=== PATIENT | male | born 1935 | race Caucasian/White ===

== ENCOUNTER 2021-04-02 17:18 | Inpatient (IN) | payer OTHER, SELFPAY ==
[~2021-04-02] VITALS: Ht 152.4 cm; Wt 59.4 kg
[2021-04-02 17:24] VITALS: BP_SYST 132
[2021-04-02 19:30] LABS: ANION GAP 12 (5-15); CHLORIDE 101 mmol/L (98-107); CREATININE 3.32 mg/dL (0.55-1.30); GLUCOSE 217 mg/dL (70-99); POTASSIUM 3.9 mmol/L (3.5-5.1); SODIUM SERUM 136 mmol/L (136-145); UREA NITROGEN, BLOOD 72 mg/dL (8-21)
[2021-04-02 19:35] LABS: BASOPHILS % (AUTO) 0.2 % (0.0-2.0); EOSINOPHILS # (AUTO) 0.1 K/uL (0.0-0.4); EOSINOPHILS % (AUTO) 0.9 % (0.0-4.0); HEMATOCRIT 31.9 % (36-54); HEMOGLOBIN 10.9 g/dL (14.0-18.0); LYMPHOCYTES # (AUTO) 1.4 K/uL (1.0-5.5); LYMPHOCYTES % (AUTO) 11.8 % (20.5-51.5); MEAN CORPUSCULAR HEMOGLOBIN 29 pg (27-31); MEAN CORPUSCULAR HGB CONC 34 % (32-36); MEAN CORPUSCULAR VOLUME 86 fL (79.0-98.0); MONOCYTES % (AUTO) 8.9 % (1.7-9.3); NEUTROPHILS # (AUTO) 9.1 K/uL (1.8-7.7); NEUTROPHILS % (AUTO) 78.2 % (40.0-70.0); PLATELET COUNT (AUTO) 209 K/uL (130-430); RED BLOOD CELL COUNT(AUTO) 3.72 MIL/uL (4.2-6.2); RED CELL DISTRIBUTION WIDTH 13.9 % (9.0-15.0); WHITE BLOOD COUNT (AUTO) 11.6 K/uL (4.8-10.8)
[2021-04-02 19:36] LABS: ALANINE AMINOTRANSFERASE 17 U/L (12-78); ALBUMIN 3.4 g/dL (3.4-4.8); ASPARTATE AMINOTRANSFERASE 14 U/L (10-37); TOTAL BILIRUBIN 0.5 mg/dL (0.0-1.0)
[2021-04-02 19:52] LABS: PROTHROMBIN TIME 10.1 SECS (9.5-12.5)
[2021-04-02] MEDS ORDERED: cefTRIAXone 1 GM VIAL IM ONE (21:45)
[2021-04-02] MEDS ORDERED: AZITHROMYCIN 500 MG in NS 250 ML IV ONE (21:45)
[2021-04-02] MEDS ORDERED: NACL 0.9% 1,000 ML IV ONE (21:45)
[2021-04-02] MEDS ORDERED: AZITHROMYCIN 500 MG/VIAL (ZITHROMAX) IV ONE (21:52)
[2021-04-02 23:37] VITALS: BP_SYST 126
[2021-04-03] VITALS: BP_SYST 126
[2021-04-03] MEDS ORDERED: ACETAMINOPHEN 325 MG TABLET PO PRN (00:15)
[2021-04-03] MEDS ORDERED: NALOXONE HCL 0.4 MG/ML AMP (NARCAN) IVP PRN (00:15)
[2021-04-03] MEDS ORDERED: LYR50 PO (00:16)
[2021-04-03] MEDS ORDERED: PRAV40TA63 PO (00:16)
[2021-04-03] MEDS ORDERED: FURO-149 PO (00:16)
[2021-04-03] MEDS ORDERED: ASA81 PO (00:16)
[2021-04-03] MEDS ORDERED: CARV3.1246 PO (00:16)
[2021-04-03] MEDS ORDERED: LISI-209 PO (00:16)
[2021-04-03] MEDS ORDERED: METF750T46 PO (00:16)
[2021-04-03 00:42] VITALS: BP_SYST 126
[2021-04-03 06:36] LABS: BASOPHILS % (AUTO) 0.4 % (0.0-2.0); EOSINOPHILS # (AUTO) 0.1 K/uL (0.0-0.4); EOSINOPHILS % (AUTO) 0.8 % (0.0-4.0); HEMATOCRIT 27.3 % (36-54); HEMOGLOBIN 9.6 g/dL (14.0-18.0); LYMPHOCYTES # (AUTO) 1.6 K/uL (1.0-5.5); LYMPHOCYTES % (AUTO) 17.7 % (20.5-51.5); MEAN CORPUSCULAR HEMOGLOBIN 30 pg (27-31); MEAN CORPUSCULAR HGB CONC 35 % (32-36); MEAN CORPUSCULAR VOLUME 85 fL (79.0-98.0); MONOCYTES # (AUTO) 0.8 K/uL (0.0-1.0); MONOCYTES % (AUTO) 8.8 % (1.7-9.3); NEUTROPHILS # (AUTO) 6.7 K/uL (1.8-7.7); NEUTROPHILS % (AUTO) 72.3 % (40.0-70.0); PLATELET COUNT (AUTO) 189 K/uL (130-430); RED CELL DISTRIBUTION WIDTH 13.8 % (9.0-15.0); WHITE BLOOD COUNT (AUTO) 9.2 K/uL (4.8-10.8)
[2021-04-03 06:58] LABS: ALANINE AMINOTRANSFERASE 15 U/L (12-78); ALBUMIN 2.8 g/dL (3.4-4.8); ANION GAP 13 (5-15); ASPARTATE AMINOTRANSFERASE 25 U/L (10-37); CALCIUM 8.3 mg/dL (8.4-11.0); CHLORIDE 106 mmol/L (98-107); CREATININE 3.01 mg/dL (0.55-1.30); GLUCOSE 189 mg/dL (70-99); POTASSIUM 3.9 mmol/L (3.5-5.1); SODIUM SERUM 140 mmol/L (136-145); TOTAL BILIRUBIN 0.4 mg/dL (0.0-1.0); UREA NITROGEN, BLOOD 72 mg/dL (8-21)
[2021-04-03 07:56] VITALS: BP_SYST 107
[2021-04-03] MEDS ORDERED: HEPARIN 25,000 UNITS/D5W 250ML 250 ML IV PRN (11:00)
[2021-04-03] MEDS ORDERED: DEXTROSE 50% JECT 50 ML DISP.SYRIN IVP PRN (11:00)
[2021-04-03] MEDS ORDERED: HEPARIN SODIUM,PORCINE 2000 UNITS/0.4 ML BOLUS IVP PRN (12:00)
[2021-04-03] MEDS ORDERED: HEPARIN SODIUM,PORCINE 5,000 UNITS/ML VIAL IVP ONE (12:00)
[2021-04-03] MEDS ORDERED: HEPARIN SODIUM,PORCINE 3000 UNITS/0.6 ML BOLUS IVP PRN (12:00)
[2021-04-03] MEDS: INSULIN REGULAR, HUMAN 100 UNITS/ML, 10 ML VIAL (humuLIN R) SUBCUT PRN ×3 (12:01→23:19)
[2021-04-03] MEDS: NACL 0.9% 1,000 ML IV SCH ×2 (12:11→21:35)
[2021-04-03 12:20] VITALS: BP_SYST 108
[2021-04-03] MEDS: HEPARIN 25,000 UNITS in 250 ML PREMIX IV PRN ×2 (13:23→13:57)
[2021-04-03 16:45] VITALS: BP_SYST 110
[2021-04-03 20:00] VITALS: BP_SYST 124
[2021-04-03] MEDS: cefTRIAXone 1 GM IVPB PREMIX 50 ML IV SCH (20:00)
[2021-04-03] MEDS ORDERED: AZITHROMYCIN 500 MG in NS 250 ML IV SCH (21:00)
[2021-04-04 00:17] VITALS: BP_SYST 104
[2021-04-04 08:00] VITALS: BP_SYST 128
[2021-04-04 11:29] LABS: BASOPHILS # (AUTO) 0.1 K/uL (0.0-0.2); BASOPHILS % (AUTO) 0.8 % (0.0-2.0); EOSINOPHILS # (AUTO) 0.5 K/uL (0.0-0.4); EOSINOPHILS % (AUTO) 4.9 % (0.0-4.0); HEMATOCRIT 26.1 % (36-54); LYMPHOCYTES % (AUTO) 20.9 % (20.5-51.5); MEAN CORPUSCULAR HEMOGLOBIN 30 pg (27-31); MEAN CORPUSCULAR HGB CONC 34 % (32-36); MEAN CORPUSCULAR VOLUME 88 fL (79.0-98.0); MONOCYTES # (AUTO) 0.9 K/uL (0.0-1.0); MONOCYTES % (AUTO) 9.6 % (1.7-9.3); NEUTROPHILS % (AUTO) 63.8 % (40.0-70.0); PLATELET COUNT (AUTO) 185 K/uL (130-430); RED BLOOD CELL COUNT(AUTO) 2.98 MIL/uL (4.2-6.2); RED CELL DISTRIBUTION WIDTH 14.1 % (9.0-15.0); WHITE BLOOD COUNT (AUTO) 9.4 K/uL (4.8-10.8)
[2021-04-04 11:32] LABS: ANION GAP 12 (5-15); CALCIUM 7.6 mg/dL (8.4-11.0); CHLORIDE 110 mmol/L (98-107); CREATININE 2.57 mg/dL (0.55-1.30); GLUCOSE 117 mg/dL (70-99); POTASSIUM 3.8 mmol/L (3.5-5.1); SODIUM SERUM 142 mmol/L (136-145); UREA NITROGEN, BLOOD 72 mg/dL (8-21)
[2021-04-04 12:05] VITALS: BP_SYST 118
[2021-04-04] MEDS: HYDROcodone/ACETAMIN 5-325 MG TAB (NORCO/ VICODIN) PO PRN (12:32)
[2021-04-04] MEDS: INSULIN REGULAR, HUMAN 100 UNITS/ML, 10 ML VIAL (humuLIN R) SUBCUT PRN ×3 (12:35→23:22)
[2021-04-04] MEDS: NACL 0.9% 1,000 ML IV SCH ×2 (12:38→23:16)
[2021-04-04 15:25] VITALS: BP_SYST 125
[2021-04-04 20:00] VITALS: BP_SYST 136
[2021-04-04] MEDS: cefTRIAXone 1 GM IVPB PREMIX 50 ML IV SCH (21:05)
[2021-04-04] MEDS: metroNIDAZOLE 500 mg/NS 100 ML IV SCH (21:52)
[2021-04-05 00:06] VITALS: BP_SYST 129
[2021-04-05] MEDS: HYDROcodone/ACETAMIN 5-325 MG TAB (NORCO/ VICODIN) PO PRN ×3 (02:43→22:40)
[2021-04-05] MEDS: NACL 0.9% 1,000 ML IV SCH ×2 (03:00→17:03)
[2021-04-05 08:00] VITALS: BP_SYST 149
[2021-04-05] MEDS: metroNIDAZOLE 500 mg/NS 100 ML IV SCH ×2 (09:05→22:41)
[2021-04-05] MEDS: INSULIN REGULAR, HUMAN 100 UNITS/ML, 10 ML VIAL (humuLIN R) SUBCUT PRN ×2 (11:44→17:32)
[2021-04-05 12:00] VITALS: BP_SYST 144
[2021-04-05] MEDS: ALBUTEROL SULFATE 0.083% 2.5 MG/3 ML VIAL.NEB INH PRN (12:24)
[2021-04-05 16:00] VITALS: BP_SYST 141
[2021-04-05 20:00] VITALS: BP_SYST 161
[2021-04-05] MEDS: cefTRIAXone 1 GM IVPB PREMIX 50 ML IV SCH (22:44)
[2021-04-06] MEDS: INSULIN REGULAR, HUMAN 100 UNITS/ML, 10 ML VIAL (humuLIN R) SUBCUT PRN ×3 (00:18→23:37)
[2021-04-06] MEDS: NACL 0.9% 1,000 ML IV SCH ×3 (00:28→21:29)
[2021-04-06 04:39] VITALS: BP_SYST 152
[2021-04-06 08:09] VITALS: BP_SYST 168
[2021-04-06] MEDS: metroNIDAZOLE 500 mg/NS 100 ML IV SCH ×2 (08:50→21:29)
[2021-04-06] MEDS ORDERED: cloNIDine HCL 0.1 MG TABLET PO ONE (09:45)
[2021-04-06 12:48] VITALS: BP_SYST 137
[2021-04-06] MEDS: HYDROcodone/ACETAMIN 5-325 MG TAB (NORCO/ VICODIN) PO PRN ×2 (14:20→23:48)
[2021-04-06 15:53] VITALS: BP_SYST 137
[2021-04-06 16:00] VITALS: BP_SYST 116
[2021-04-06 20:00] VITALS: BP_SYST 147
[2021-04-06] MEDS: cefTRIAXone 1 GM IVPB PREMIX 50 ML IV SCH (21:29)
[2021-04-07] MEDS: ALBUTEROL SULFATE 0.083% 2.5 MG/3 ML VIAL.NEB INH PRN ×3 (00:59→23:58)
[2021-04-07 01:00] VITALS: BP_SYST 154
[2021-04-07] MEDS: NACL 0.9% 1,000 ML IV SCH ×2 (05:31→16:10)
[2021-04-07 07:43] VITALS: BP_SYST 147
[2021-04-07] MEDS: DOCUSATE SODIUM 250 MG CAPSULE PO SCH ×2 (09:18→20:59)
[2021-04-07] MEDS: FUROSEMIDE 40 MG TABLET PO SCH (09:19)
[2021-04-07] MEDS: lisinopriL 5 MG TABLET PO SCH (09:19)
[2021-04-07] MEDS: ASPIRIN 81 MG TAB.CHEW PO SCH (09:21)
[2021-04-07] MEDS: CARVEDILOL 3.125 MG TABLET (COREG) PO SCH (09:21)
[2021-04-07] MEDS: PREGABALIN 25 MG CAPSULE (LYRICA) PO SCH (09:22)
[2021-04-07] MEDS: BENZONATATE 100 MG CAPSULE (TESSALON) PO SCH ×3 (09:22→21:03)
[2021-04-07] MEDS: metroNIDAZOLE 500 mg/NS 100 ML IV SCH ×2 (11:18→21:01)
[2021-04-07] MEDS: INSULIN REGULAR, HUMAN 100 UNITS/ML, 10 ML VIAL (humuLIN R) SUBCUT PRN ×3 (11:36→23:45)
[2021-04-07 12:02] VITALS: BP_SYST 125
[2021-04-07 16:00] VITALS: BP_SYST 140
[2021-04-07 20:00] VITALS: BP_SYST 139
[2021-04-07] MEDS: cefTRIAXone 1 GM IVPB PREMIX 50 ML IV SCH (21:01)
[2021-04-07] MEDS: D5NS 1,000 ML IV SCH (21:19)
[2021-04-08] VITALS: BP_SYST 151
[2021-04-08] MEDS: INSULIN REGULAR, HUMAN 100 UNITS/ML, 10 ML VIAL (humuLIN R) SUBCUT PRN ×3 (05:44→17:20)
[2021-04-08 08:13] LABS: BASOPHILS % (AUTO) 0.4 % (0.0-2.0); EOSINOPHILS # (AUTO) 0.6 K/uL (0.0-0.4); EOSINOPHILS % (AUTO) 5.3 % (0.0-4.0); HEMATOCRIT 24.4 % (36-54); HEMOGLOBIN 8.4 g/dL (14.0-18.0); LYMPHOCYTES # (AUTO) 1.2 K/uL (1.0-5.5); LYMPHOCYTES % (AUTO) 11.8 % (20.5-51.5); MEAN CORPUSCULAR HEMOGLOBIN 30 pg (27-31); MEAN CORPUSCULAR HGB CONC 35 % (32-36); MEAN CORPUSCULAR VOLUME 86 fL (79.0-98.0); MONOCYTES # (AUTO) 0.9 K/uL (0.0-1.0); MONOCYTES % (AUTO) 8.4 % (1.7-9.3); NEUTROPHILS # (AUTO) 7.8 K/uL (1.8-7.7); NEUTROPHILS % (AUTO) 74.1 % (40.0-70.0); PLATELET COUNT (AUTO) 197 K/uL (130-430); RED BLOOD CELL COUNT(AUTO) 2.82 MIL/uL (4.2-6.2); RED CELL DISTRIBUTION WIDTH 13.6 % (9.0-15.0); WHITE BLOOD COUNT (AUTO) 10.6 K/uL (4.8-10.8)
[2021-04-08 09:09] LABS: ALANINE AMINOTRANSFERASE 30 U/L (12-78); ALBUMIN 2.3 g/dL (3.4-4.8); ANION GAP 10 (5-15); ASPARTATE AMINOTRANSFERASE 32 U/L (10-37); CALCIUM 8.2 mg/dL (8.4-11.0); CHLORIDE 109 mmol/L (98-107); CREATININE 1.39 mg/dL (0.55-1.30); GLUCOSE 173 mg/dL (70-99); POTASSIUM 3.6 mmol/L (3.5-5.1); SODIUM SERUM 140 mmol/L (136-145); TOTAL BILIRUBIN 0.2 mg/dL (0.0-1.0); UREA NITROGEN, BLOOD 22 mg/dL (8-21)
[2021-04-08] MEDS: PREGABALIN 25 MG CAPSULE (LYRICA) PO SCH (10:29)
[2021-04-08] MEDS: DOCUSATE SODIUM 250 MG CAPSULE PO SCH ×2 (10:29→20:03)
[2021-04-08] MEDS: FUROSEMIDE 40 MG TABLET PO SCH (10:30)
[2021-04-08] MEDS: CARVEDILOL 3.125 MG TABLET (COREG) PO SCH (10:30)
[2021-04-08] MEDS: ASPIRIN 81 MG TAB.CHEW PO SCH (10:31)
[2021-04-08] MEDS: lisinopriL 5 MG TABLET PO SCH (10:31)
[2021-04-08] MEDS: D5NS 1,000 ML IV SCH ×2 (10:33→23:55)
[2021-04-08] MEDS: metroNIDAZOLE 500 mg/NS 100 ML IV SCH ×2 (10:33→20:03)
[2021-04-08] MEDS: BENZONATATE 100 MG CAPSULE (TESSALON) PO SCH ×3 (10:35→20:03)
[2021-04-08 11:36] LABS: BILIRUBIN,URINE NEGATIVE (NEGATIVE); CLARITY/URINE CLEAR (CLEAR); COLOR,URINE YELLOW (YELLOW); GLUCOSE,URINE TRACE (NEGATIVE); KETONES,URINE NEGATIVE (NEGATIVE); LEUKOCYTE ESTERASE ,URINE NEGATIVE (NEGATIVE); NITRITE, URINE NEGATIVE (NEGATIVE); PROTEIN URINE 1+ (NEGATIVE); UROBILINOGEN,URINE 0.2 (0.2-1.0)
[2021-04-08 12:10] LABS: BLOOD, URINE TRACE (NEGATIVE)
[2021-04-08 12:15] LABS: BACTERIA,URINE None Seen /HPF (None Seen); RBC,URINE 0-3 /HPF (0-3); WBC,URINE NONE SEEN /HPF (0-3)
[2021-04-08 12:33] VITALS: BP_SYST 158
[2021-04-08 17:46] VITALS: BP_SYST 150
[2021-04-08 20:00] VITALS: BP_SYST 143
[2021-04-08] MEDS: cefTRIAXone 1 GM IVPB PREMIX 50 ML IV SCH (20:03)
[2021-04-09] MEDS: INSULIN REGULAR, HUMAN 100 UNITS/ML, 10 ML VIAL (humuLIN R) SUBCUT PRN ×2 (00:10→13:07)
[2021-04-09] MEDS: ALBUTEROL SULFATE 0.083% 2.5 MG/3 ML VIAL.NEB INH PRN (00:20)
[2021-04-09 00:32] VITALS: BP_SYST 117
[2021-04-09] MEDS ORDERED: POLYETHYLENE GLYCOL 3350, 17 GM/ POWD.PACK PO PRN (07:00)
[2021-04-09 08:00] VITALS: BP_SYST 163
[2021-04-09 08:39] VITALS: BP_SYST 117
[2021-04-09] MEDS: BENZONATATE 100 MG CAPSULE (TESSALON) PO SCH ×3 (10:22→21:56)
[2021-04-09] MEDS: PREGABALIN 25 MG CAPSULE (LYRICA) PO SCH (10:22)
[2021-04-09] MEDS: DOCUSATE SODIUM 250 MG CAPSULE PO SCH ×2 (10:22→21:00)
[2021-04-09] MEDS: lisinopriL 5 MG TABLET PO SCH (10:26)
[2021-04-09] MEDS: CARVEDILOL 3.125 MG TABLET (COREG) PO SCH (10:26)
[2021-04-09] MEDS: ASPIRIN 81 MG TAB.CHEW PO SCH (10:27)
[2021-04-09] MEDS: FUROSEMIDE 40 MG TABLET PO SCH (10:28)
[2021-04-09] MEDS: metroNIDAZOLE 500 mg/NS 100 ML IV SCH ×2 (10:29→21:57)
[2021-04-09 11:33] VITALS: BP_SYST 165
[2021-04-09 15:28] VITALS: BP_SYST 173
[2021-04-09 20:00] VITALS: BP_SYST 145
[2021-04-09] MEDS: cefTRIAXone 1 GM IVPB PREMIX 50 ML IV SCH (21:00)
[2021-04-10] VITALS (8 sets, daily range): BP systolic 102–157
[2021-04-10] MEDS: metroNIDAZOLE 500 mg/NS 100 ML IV SCH ×2 (10:15→21:17)
[2021-04-10] MEDS: DOCUSATE SODIUM 250 MG CAPSULE PO SCH ×3 (10:17→21:18)
[2021-04-10] MEDS: CARVEDILOL 3.125 MG TABLET (COREG) PO SCH (10:17)
[2021-04-10] MEDS: ASPIRIN 81 MG TAB.CHEW PO SCH (10:17)
[2021-04-10] MEDS: FUROSEMIDE 40 MG TABLET PO SCH (10:18)
[2021-04-10] MEDS: lisinopriL 5 MG TABLET PO SCH (10:19)
[2021-04-10] MEDS: PREGABALIN 25 MG CAPSULE (LYRICA) PO SCH (10:22)
[2021-04-10] MEDS: BENZONATATE 100 MG CAPSULE (TESSALON) PO SCH ×3 (10:35→21:18)
[2021-04-10] MEDS ORDERED: cloNIDine HCL 0.1 MG TABLET PO ONE (16:30)
[2021-04-11 00:15] VITALS: BP_SYST 145
[2021-04-11] MEDS: INSULIN REGULAR, HUMAN 100 UNITS/ML, 10 ML VIAL (humuLIN R) SUBCUT PRN (01:19)
[2021-04-11 02:25] VITALS: BP_SYST 140
[2021-04-11 04:21] VITALS: BP_SYST 136
[2021-04-11 08:00] VITALS: BP_SYST 156
[2021-04-11] MEDS: lisinopriL 5 MG TABLET PO SCH (08:42)
[2021-04-11] MEDS: CARVEDILOL 3.125 MG TABLET (COREG) PO SCH (08:42)
[2021-04-11] MEDS: ASPIRIN 81 MG TAB.CHEW PO SCH (08:43)
[2021-04-11] MEDS: DOCUSATE SODIUM 250 MG CAPSULE PO SCH (08:43)
[2021-04-11] MEDS: FUROSEMIDE 40 MG TABLET PO SCH (08:43)
[2021-04-11] MEDS: BENZONATATE 100 MG CAPSULE (TESSALON) PO SCH (08:44)
[2021-04-11] MEDS: PREGABALIN 25 MG CAPSULE (LYRICA) PO SCH (08:44)
[2021-04-11 09:23] VITALS: BP_SYST 156
== END 2021-04-11 09:45 | DRG 871 ==
LOC: SED 17:18 → STU 22:01
PROVIDERS: ADMIT Internal Medicine Hospice and Palliative Medicine; ATTEND Internal Medicine Hospice and Palliative Medicine
DX: A41.9 Sepsis, unspecified organism (principal); J96.01 Acute respiratory failure with hypoxia; J69.0 Pneumonitis due to inhalation of food and vomit; N17.9 Acute kidney failure, unspecified; B02.29 Other postherpetic nervous system involvement; F03.90 Unspecified dementia, unspecified severity, without behavioral disturbance, psychotic disturbance, mood disturbance, and anxiety; I12.9 Hypertensive chronic kidney disease with stage 1 through stage 4 chronic kidney disease, or unspecified chronic kidney disease; E11.22 Type 2 diabetes mellitus with diabetic chronic kidney disease; N18.9 Chronic kidney disease, unspecified; Z20.822 Contact with and (suspected) exposure to COVID-19
CPT/HCPCS: 36415; 36600; 70450-TC; 71045; 72131; 72170-TC; 73521; 76376; 76770; 80048; 80053; 81000; 82803-TC; 82962; 83880; 84484; 85025; 85379; 85610-TC; 85730-TC; 87040-TC; 87086; 93005; 93970; 94640; 96365; 96375; 97110-GP; 97116-GP; 97163-GP; 97530-GP; 99285; G0378; J0456; J0696; J1644; J1815; J3490; J7050; J7613